=== PATIENT | female | born 1965 | race Caucasian/White ===

== ENCOUNTER → 2020-01-26 14:05 | Outpatient (BNVA) | payer BC, SELFPAY | PROVIDERS: Family Provider Registered Nurse; PCP Registered Nurse; Visit Provider Registered Nurse | DX: J11.1 Influenza due to unidentified influenza virus with other respiratory manifestations; R68.89 Other general symptoms and signs | CPT/HCPCS: 87804; 87880 ==

== ENCOUNTER 2020-04-17 14:40 | Emergency (ER) | payer BC, SELFPAY ==
[2020-04-17 14:56] VITALS: BP 147/87; PULSE 66; RESP 18; TEMP 37.3; O2SAT 96; BMI 29.9
--- NOTE | 2020-04-17 15:03 | W.ED.EXTPRO ---
HPI - Extremity Problem General: Chief complaint: Extremity Injury, Upper Stated complaint: R ARM INJURY Time Seen by Provider: 04/17/20 14:58 History of Present Illness: HPI Narrative: Patient is a 55-year-old female comes to the ED with left wrist pain. Patient was kayaking and she fell down the number and caught herself with her left hand extended. Patient felt a pop and sharp pain in the wrist. Patient describes pain is located right in the wrist and any finger or hand movement causes pain in the wrist. She rates it about at 9 out of 10. Associated symptoms: Deny chest pain, fever(s) or rash Review of Systems Const: Denies: fever(s), chills or fatigue Eyes: Denies: change in vision or eye discomfort ENMT: Denies: throat pain, odynophagia, nasal discharge or nasal congestion Card: Denies: chest pain, palpitations, edema, swelling of feet/ankles, dyspnea on exertion or orthopnea Resp: Denies: dyspnea, productive cough or non-productive cough GI: Denies: abdominal pain, nausea, vomiting, diarrhea, constipation or hematochezia : Denies: flank pain, dysuria or hematuria Musc: Reports: extremity pain (left wrist) and joint pain (left wrist pain); Denies: neck pain, back pain or extremity swelling Skin/Breast: Denies: rash or new lesions Neuro: Denies: headache(s), numbness in extremities or weakness in extremities PFS ED PFSH: Social History Smoking and tobacco status: never smoked Physical Exam Const: COMMON NORMALS: patient oriented x3 and alert GENERAL APPEARANCE: cooperative; not comfortable (Patient appears to be in discomfort and pain due to wrist.) HENMT: COMMON NORMALS: normocephalic HEAD & SCALP: normocephalic MOUTH: Normal oral and palatal mucosa present THROAT: posterior oropharynx normal and uvula midline Neck/C-Spine: COMMON NORMALS: supple GENERAL: Yes normal visual inspection Resp: COMMON NORMALS: normal respiratory effort, No retractions, No use of accessory muscles and clear to auscultation bilaterally AUSCULTATION: clear to auscultation bilaterally Cardio: COMMON NORMALS: regular rate, regular rhythm, S1 normal heart sound present, S2 normal heart sound present, No gallops present (Cardio), No clicks present (Cardio), No murmurs present (Cardio) and Peripheral pulses 2+ throughout RATE: regular rate RHYTHM: regular rhythm HEART SOUNDS: S1 normal heart sound present and S2 normal heart sound present PERIPHERAL PULSES: Peripheral pulses 2+ throughout GI: COMMON NORMALS: Normal to inspection, nondistended, normoactive bowel sounds present, Soft to palpation, non-tender and no masses PALPATION: Yes Soft to palpation : COMMON NORMALS: Yes no CVA tenderness BLADDER/KIDNEY EXAM: Yes no CVA tenderness Back/Pelvis: COMMON NORMALS: no CVA tenderness Extremity: COMMON NORMALS: capillary refill normal GENERAL: Yes normal exam except as noted LEFT UPPER EXTREMITY: Yes wrist Left wrist: Yes inspection (No visible deformity, swelling or erythema.), Yes palpation (Moderate to severe tenderness upon palpation throughout the wrist.), Yes ROM (Limited due to pain.) and Yes neurovascular exam (Intact, pulse 2+, cap refill normal and sensation intact to fingers.) Neuro: COMMON NORMALS: patient oriented x3 and moves all extremities SENSORIUM/ORIENTATION: Yes alert Skin: COMMON NORMALS: no rashes or lesions noted GENERAL SKIN EXAM: no rashes or lesions noted and dry skin Course Vital Signs: Vital signs: Vital Signs Temperature 99.1 F 04/17/20 14:56 Pulse Rate 66 04/17/20 14:56 Respiratory Rate 18 04/17/20 14:56 Blood Pressure 147/87 04/17/20 14:56 Pulse Oximetry 96 04/17/20 14:56 MDM - Extremity (Nontraumatic) MDM Narrative: Medical decision making narrative: Patient is a 55-year-old female comes to the ED with left wrist pain after falling catching herself on outstretched left arm. Left wrist was tender to palpation. Left radial pulse was 2+, left hand sensation intact and cap refill was normal. X-ray left wrist showed a distal nondisplaced radial head fracture. Patient was put in a sugar tong splint and an [facility] orthopedic referral was placed with case management. I informed patient that [facility] orthopedic clinic should be contacting them in the next several days to set up an appointment. Patient was told to continue wearing splint and limit activity with left arm. A written prescription for hydrocodone was given to patient to help with pain. Patient understood and agreed with plan. Dr. Paniagua reviewed this case. Imaging Data^: Xray Ortho: Attestation: I personally reviewed and interpreted this imaging study as follows: My impression: Left wrist x-ray shows nondisplaced distal radial head fracture. Pending final radiology report. Discharge Plan Discharge Patient Disposition: Home, Self-Care Clinical Impression: Fracture of distal end of left radius Qualifiers: Encounter type: initial encounter Fracture type: closed Fracture morphology: torus Qualified Code(s): S52.522A - Torus fracture of lower end of left radius, initial encounter for closed fracture Condition: Stable Prescriptions: No Action Eliquis 5 mg tablet 5 mg PO BID RF: 0 hydrochlorothiazide 12.5 mg capsule 12.5 mg PO DAILY RF: 0 hyoscyamine sulfate [Levsin] 0.125 mg tablet 0.125 mg PO QID RF: 0 losartan 100 mg tablet 100 mg PO DAILY RF: 0 metoprolol tartrate 37.5 mg tablet 37.5 mg PO DAILY RF: 0 Protonix [address] for susp in packet 40 mg PO DAILY Qty: 30 RF: 0 sertraline 100 mg tablet 100 mg PO DAILY Qty: 90 RF: 0 levothyroxine 25 mcg capsule 25 mcg PO DAILY Qty: 90 RF: 0 Multiple Vitamins Tablet 1 tab PO DAILY RF: 0 metoprolol succinate 25 mg tablet extended release 24 hr See Rx Instructions .ROUTE .COMPLEX RF: 0 Discharge Orders: Discharge Order (Routine); Ordered 04/17/20 Ordered By: Lauri Mart Referrals: Viral Alberto FNP [Primary Care Provider] - Discharge Diet: Regular Discharge Activity: Limit activity as instructed Patient Instructions: Wrist Fracture in Adults (ED) Activity Restrictions/Additional Instructions: [facility] orthopedic office should be contacting you in the next several days to set up an appointment. Do not remove splint and limit activity with left arm. Take hydrocodone as prescribed as needed for pain. You can also take ibuprofen 600mg 3 times daily in between hydrocodone doses if needed for pain. Coding Level of Care Code ED Decating Machine Operator for Opal Jacobo Exam Comprehensive
--- NOTE | 2020-04-17 15:27 | XRR_ITS ---
PROCEDURE INFORMATION: Exam: XR Left Wrist Exam date and time: 04/17/2020 3:28 PM Age: 55 years old Clinical indication: Injury or trauma; Fall; Initial encounter; Blunt trauma (contusions or hematomas; Wrist; Left; Additional info: Fall with injury to wrist, wrist pain TECHNIQUE: Imaging protocol: XR Left wrist. Views: 3 or more views. COMPARISON: No relevant prior studies available. FINDINGS: Bones/joints: Predominantly horizontally oriented nondisplaced fracture through the distal radial metaphysis. Soft tissues: Edema and/or hematoma is present in the soft tissues adjacent to the fracture site. There are benign-appearing soft tissue calcifications. XR/XR wrist LT min 3V* [id number] IMPRESSION: Predominantly horizontally oriented nondisplaced fracture through the distal radial metaphysis.
[2020-04-17] MEDS: HYDROcodone-acetaminophen 7.5-325 mg Tablet 1 TAB PO (15:45)
[2020-04-17 17:06] VITALS: BP 144/93; PULSE 72; RESP 14; O2SAT 95
--- NOTE | 2020-04-19 16:04 | DCPLANNER ---
manager bench had message to schedule a follow up appointment for patient with ortho. manager bench called the ortho clinic, spoke with Mariana, gave clinic patients information. manager bench was told that patients information would be printed and reviewed. Clinic will call assistant case manager and patient with appointment information.
--- NOTE | 2020-04-20 08:16 | DCPLANNER ---
Patient had a follow up appointment scheduled for 04.19.20 with ortho, patient did attend the appointment.
== END 2020-04-17 17:08 | disposition home or self-care (01) ==
PROVIDERS: Emergency Provider Physician Assistant; Family Provider Registered Nurse; PCP Registered Nurse
DX: S52.522A Torus fracture of lower end of left radius, initial encounter for closed fracture (principal); W19.XXXA Unspecified fall, initial encounter; Z79.01 Long term (current) use of anticoagulants
CPT/HCPCS: 12345; 29125; 73110; 99281; 99283; A4590

== ENCOUNTER 2020-04-19 14:07 | Outpatient (CLI) | payer BC, SELFPAY | END 2020-04-19 14:08 | disposition home or self-care (01) | LOC: SPT 14:07 | PROVIDERS: Family Provider Registered Nurse; PCP Registered Nurse; Visit Provider Orthopaedic Surgery | DX: Z46.89 Encounter for fitting and adjustment of other specified devices (principal); M25.532 Pain in left wrist | CPT/HCPCS: 97760; L3908 ==

== ENCOUNTER 2020-04-21 08:20 | Outpatient (CLI) | payer BC, SELFPAY ==
--- NOTE | 2020-04-21 08:30 | CT_ITS ---
WS: [id number] CT LEFT WRIST, NONCONTRAST. HISTORY: fracture Technique: All CT scans at [facility] use at least one of these dose optimization techniq ues: automated exposure control; mA and/or kV adjustment per patient size (includes targeted exams wh ere dose is matched to clinical indication); or iterative reconstruction. DLP: 2448.45 mGy-cm. COMPARISON: LEFT wrist radiograph 04/17/2020 Nondisplaced transverse fracture radial metaphysis. Fracture does extend to the radial articular surf casandra. There is no displacement. Distal ulna is intact. No widening of the radial ulnar joint. No scaph oid fracture. Carpal rows are normally aligned. Small amount of persistent soft tissue edema. CT/CT wrist LT wo con* [id number] IMPRESSION: Nondisplaced transverse radial fracture with intra-articular extension. No scaphoid fracture.
== END 2020-04-21 08:21 | disposition home or self-care (01) ==
PROVIDERS: Family Provider Registered Nurse; PCP Registered Nurse; Visit Provider Orthopaedic Surgery
DX: S52.522A Torus fracture of lower end of left radius, initial encounter for closed fracture (principal); X58.XXXA Exposure to other specified factors, initial encounter
CPT/HCPCS: 73200

== ENCOUNTER → 2020-05-16 15:23 | Outpatient (BNVA) | payer BC, SELFPAY | PROVIDERS: Family Provider Registered Nurse; PCP Registered Nurse; Visit Provider Orthopaedic Surgery | DX: S52.522A Torus fracture of lower end of left radius, initial encounter for closed fracture (principal) | CPT/HCPCS: 73110 ==

== ENCOUNTER → 2020-09-26 10:56 | Outpatient (BNVA) | payer BC, SELFPAY | PROVIDERS: Family Provider Registered Nurse; PCP Registered Nurse; Visit Provider Nurse Practitioner Family | DX: Z11.59 Encounter for screening for other viral diseases (principal); J06.9 Acute upper respiratory infection, unspecified | CPT/HCPCS: 87635 ==

== ENCOUNTER → 2021-02-23 10:52 | Outpatient (BNVA) | payer OTHER, SELFPAY | PROVIDERS: Family Provider Registered Nurse; PCP Registered Nurse; Visit Provider Registered Nurse | DX: I10 Essential (primary) hypertension (principal); F32.9 Major depressive disorder, single episode, unspecified; E55.9 Vitamin D deficiency, unspecified; E78.5 Hyperlipidemia, unspecified; E53.8 Deficiency of other specified B group vitamins; R55 Syncope and collapse; F43.29 Adjustment disorder with other symptoms; M26.609 Unspecified temporomandibular joint disorder, unspecified side | CPT/HCPCS: 80053; 80061; 82306; 82607; 84443; 85025 ==

== ENCOUNTER 2022-01-31 10:57 | Outpatient (CLI) | payer OTHER, SELFPAY ==
--- NOTE | 2022-01-31 11:02 | MM_ITS ---
WS: [id number] BILATERAL 3D TOMOSYNTHESIS DIGITAL SCREENING MAMMOGRAPHY WITH CAD CLINICAL INFORMATION: SCREENING HISTORY: Screening mammogram. No current complaints. COMPARISON: TECHNIQUE: Bilateral CC and MLO views. FINDINGS: The breasts are composed of heterogeneous fibroglandular density tissue, which can limit the detectio n of small underlying mass lesions. Incidental punctate calcifications and tiny lucent centered calci fications. Vascular calcification. No suspicious mass, asymmetry, calcifications, or architectural di stortion. No evidence of malignancy. MM/[place] [id number] IMPRESSION: BI-RADS: 2-Benign FOLLOW UP: 1 Year Follow-up Recommend return to annual screening mammography.
== END 2022-01-31 10:58 | disposition home or self-care (01) ==
LOC: RADSHAW 11:00
PROVIDERS: PCP Registered Nurse; Visit Provider Registered Nurse
DX: Z12.31 Encounter for screening mammogram for malignant neoplasm of breast (principal)
CPT/HCPCS: 77063; 77067

== ENCOUNTER 2022-04-25 15:40 | Outpatient (CLI) | payer OTHER, SELFPAY ==
--- NOTE | 2022-04-25 15:51 | XRR_ITS ---
PROCEDURE INFORMATION: Exam: XR Lumbosacral Spine Exam date and time: 04/25/2022 3:52 PM Age: 57 years old Clinical indication: Low back pain; Additional info: M54.50 - low back pain, unspecified TECHNIQUE: Imaging protocol: XR of the lumbosacral spine. Views: 2 or 3 views. COMPARISON: No relevant prior studies available. FINDINGS: Bones/joints: The lumbar spine maintains a normal lordotic curvature. No spondylolisthesis identified. The vertebral bodies maintain normal height. The intervertebral discs maintain normal height. Mild facet arthropathy at L4-5 and L5-S1. Soft tissues: Unremarkable. Surgical clips in the right upper quadrant noted. XR/XR lumbar spine 2-3V* [id number] IMPRESSION: 1. No vertebral body height loss or traumatic malalignment identified. 2. Mild facet arthropathy at L4-5 and L5-S1.
== END 2022-04-25 15:41 | disposition home or self-care (01) ==
LOC: RAD 15:43
PROVIDERS: PCP Registered Nurse; Visit Provider Registered Nurse
DX: M54.50 Low back pain, unspecified (principal)
CPT/HCPCS: 72100

== ENCOUNTER → 2022-08-08 09:05 | Outpatient (BNVA) | payer OTHER, SELFPAY | PROVIDERS: PCP Registered Nurse; Visit Provider Registered Nurse | DX: E03.9 Hypothyroidism, unspecified (principal); I10 Essential (primary) hypertension; E07.9 Disorder of thyroid, unspecified | CPT/HCPCS: 80053; 80061; 84443 ==

== ENCOUNTER → 2022-08-13 14:19 | Outpatient (BNVA) | payer OTHER, SELFPAY | PROVIDERS: PCP Registered Nurse; Visit Provider Registered Nurse | DX: N39.0 Urinary tract infection, site not specified (principal); R39.9 Unspecified symptoms and signs involving the genitourinary system | CPT/HCPCS: 81000 ==

== ENCOUNTER 2022-12-17 12:09 | Outpatient (CLI) | payer OTHER, SELFPAY ==
--- NOTE | 2022-12-17 13:18 | XRR_ITS ---
PROCEDURE INFORMATION: Exam: XR Left Ankle Exam date and time: 12/17/2022 1:19 PM Age: 57 years old Clinical indication: Injury or trauma; Other: Twisted while running; Sprain or strain; Left; Injury date: 07/2022; Injury details: --lt ankle pain lateral side, PT twisted ankle running on treadmill, in jul 2022; Additional info: S96.912a - strain of unspecified muscle and tendon at ank. . . TECHNIQUE: Imaging protocol: Radiologic exam of the Left ankle. Views: 3 or more views. COMPARISON: No relevant prior studies available. FINDINGS: Bones/joints: Normal. Soft tissues: Normal. XR/XR ankle LT min 3V* [id number] IMPRESSION: No acute findings.
== END 2022-12-17 12:10 | disposition home or self-care (01) ==
LOC: RAD 12:11
PROVIDERS: PCP Registered Nurse; Visit Provider Registered Nurse
DX: S96.912A Strain of unspecified muscle and tendon at ankle and foot level, left foot, initial encounter (principal); X58.XXXA Exposure to other specified factors, initial encounter
CPT/HCPCS: 73610

== ENCOUNTER 2023-04-03 11:29 | Outpatient (CLI) | payer OTHER, SELFPAY | END 2023-04-03 11:30 | disposition home or self-care (01) | LOC: SPT 11:29 | PROVIDERS: PCP Registered Nurse; Visit Provider Podiatrist Foot & Ankle Surgery | DX: Z46.89 Encounter for fitting and adjustment of other specified devices (principal); M25.372 Other instability, left ankle | CPT/HCPCS: 97760; L1902 ==

== ENCOUNTER 2023-08-06 11:56 | Outpatient (CLI) | payer OTHER, SELFPAY ==
--- NOTE | 2023-08-06 12:03 | MR_ITS ---
WS: [id number] MRI LEFT ANKLE WITHOUT CONTRAST. COMPARISON: Radiographs 12/17/2022 Multiplanar, multisequence imaging is performed without contrast. No fracture or marrow edema. No significant joint effusion. No osteochondral lesions along the talar dome. Talofibular ligaments are intact. Deltoid ligament is normal. Achilles tendon is normal. Abnormal signal within the peroneal tendons and sheath just inferior to the fibular tip. This corresp onds to the marker placed in the area of pain. There is indistinctness between the 2 tendons with lisbet ma. Distally the peroneal brevis tendon has a split tear. The peroneal longus tendon may be inserting into the tear of the peroneal brevis tendon. There is marked soft tissue thickening and increased si gnal along the tendon sheath the split tear within the peroneal brevis extending to the fifth metatar christie. The remaining extensor and flexor tendons normal course and caliber. No additional tendinopathy. IMPRESSION: 1. Abnormal signal focally in the peroneal tendons and tendon sheath just inferior to the fibula. The tendons become individually indistinct and there is increased signal within the tendons and also the tendon sheath. Both tendons may be torn. The peroneal brevis tendon may be torn with invagination of the peroneal longus tendon. 2. There is a split tear involving a long segment of the distal peroneal brevis tendon as it approach es the fifth metatarsal.
== END 2023-08-06 11:57 | disposition home or self-care (01) ==
PROVIDERS: PCP Registered Nurse; Visit Provider Podiatrist Foot & Ankle Surgery
DX: M25.372 Other instability, left ankle (principal); M84.373A Stress fracture, unspecified ankle, initial encounter for fracture; S86.312A Strain of muscle(s) and tendon(s) of peroneal muscle group at lower leg level, left leg, initial encounter; X58.XXXA Exposure to other specified factors, initial encounter
CPT/HCPCS: 73721

== ENCOUNTER → 2023-08-20 08:40 | Outpatient (BNVA) | payer OTHER, SELFPAY | PROVIDERS: PCP Registered Nurse; Visit Provider Registered Nurse | DX: E03.9 Hypothyroidism, unspecified (principal) | CPT/HCPCS: 84443 ==

== ENCOUNTER → 2023-08-27 16:26 | Outpatient (BNVA) | payer OTHER, SELFPAY | PROVIDERS: PCP Registered Nurse; Visit Provider Internal Medicine Cardiovascular Disease | DX: R07.9 Chest pain, unspecified (principal) | CPT/HCPCS: 93005 ==

== ENCOUNTER 2023-09-02 13:34 | Outpatient (CLI) | payer OTHER, SELFPAY ==
--- NOTE | 2023-09-02 13:45 | USCV_ITS ---
Manisha Arroyo Age: 58 Gender: F : 1965 Exam Date: 09/02/2023 13:54 Ordering Phys: Destiney Man MD ([email or web address]) Technologist: Razia Shine Exam Location: [facility] [place] [place] Indication: afib, JOSE BP: 138 / 86 HR: 63 Rhythm: Sinus Technical Quality: Good MEASUREMENTS (Male / Female) Normal Values 2D ECHO LV Diastolic Diameter PLAX 4.1 cm 4.2 - 5.9 / 3.9 - 5.3 cm LV Systolic Diameter PLAX 2.9 cm IVS Diastolic Thickness 1.1 cm 0.6 - 1.0 / 0.6 - 0.9 cm IVS Systolic Thickness 1.0 cm LVPW Diastolic Thickness 0.9 cm 0.6 - 1.0 / 0.6 - 0.9 cm LVPW Systolic Thickness 1.2 cm LVOT Diameter 2.0 cm LV Ejection Fraction 2D Teich 55.8 % LV Ejection Fraction MOD 2C 69.1 % LV Ejection Fraction 2C AL 68.7 % LA Diameter 3.1 cm LA Width 3.1 cm LA Height 4.3 cm RA Width 3.2 cm RA Height 4.4 cm Aorta at Sinotubular Diameter 3.1 cm IVC Diameter 1.5 cm M-MODE Aortic Annulus Diameter 2.6 cm LA Ao Ratio MM 1.4 MV E Point Septal Separation 0.3 cm DOPPLER AV Peak Velocity 140.0 cm/s LVOT Peak Velocity 104.0 cm/s AV Area Cont Eq vti 2.8 cm squared AV Area Cont Eq pk 2.4 cm squared MV Peak Velocity 110.0 cm/s MV Area PHT 4.3 cm squared Mitral E to A Ratio 1.7 MV E' Velocity 46.5 cm/s Mitral E to MV E' Ratio 5.8 Mitral E to LV E' Lateral Ratio 6.7 Mitral E to LV E' Septal Ratio 5.1 TR Peak Velocity 167.0 cm/s TR Peak Gradient 11.2 mmHg Right Atrial Pressure 5.0 mmHg Pulmonary Artery Systolic Pressu 16.2 mmHg PV Peak Velocity 120.0 cm/s RV Acceleration Time 0.2 s RV Ejection Time 0.3 s RV AcT/ET 0.5 FINDINGS Left Ventricle Normal left ventricular size and systolic function, EF 73 %. No regional wall motion abnormalities. Right Ventricle The right ventricle is normal in size and function. Right Atrium The right atrium is normal in size. Left Atrium The left atrium is normal in size. Mitral Valve Trace to mild mitral valve regurgitation. Aortic Valve No gross abnormalities noted Tricuspid Valve Trace tricuspid valve regurgitation. Pulmonic Valve No gross abnormalities noted Pericardium Normal pericardium without effusion. Aorta Normal ascending aorta dimension. IVC Normal inferior vena cava. CONCLUSIONS Normal left ventricular size and systolic function, EF 73 %. No regional wall motion abnormalities. Trace to mild mitral valve regurgitation. Trace tricuspid valve regurgitation. Normal cardiac chamber sizes. No intracardiac masses. No pericardial effusion. Estimated pulmonary artery peak systolic pressure within normal limit Compared to the study from 08/31/2016, there may not be a significant change. Dr Destiney Man MD FACC (Electronically Signed) Final Date: 03 September 2023 22:52 S
== END 2023-09-02 13:35 | disposition home or self-care (01) ==
PROVIDERS: PCP Registered Nurse; Visit Provider Internal Medicine Cardiovascular Disease
DX: I48.91 Unspecified atrial fibrillation (principal); R06.09 Other forms of dyspnea
CPT/HCPCS: 93306

== ENCOUNTER 2023-09-04 08:23 | Day surgery (SDC) | payer OTHER, SELFPAY ==
[2023-09-04] VITALS (10 sets, daily range): BP systolic 119–144; BP diastolic 70–97; PULSE 61–95; RESP 7–17; TEMP 36.1–36.6; O2SAT 91–100; BMI 31.4
[2023-09-04] MEDS: sodium chloride 0.9% 1,000 ML 30 ML IV ×2 (09:08→11:08)
[2023-09-04] MEDS: gabapentin 300 mg Capsule PO (09:08)
[2023-09-04] MEDS: acetaminophen 1,000 MG/100 ML PIGGYBACK 400 MG IV (09:08)
[2023-09-04 09:26] LABS: Basophils # 0.1 10^3/uL (0.0-0.1); Basophils % 0.7 %; Eosinophils # 0.1 10^3/uL (0.0-0.8); Eosinophils % 1.3 %; Hematocrit 40.4 % (36-47); Lymphocytes % 25.9 %; Mean Corpuscular HGB Conc 32.4 g/dL (30-55); Mean Corpuscular Hemoglobin 29.2 pg (27-33); Mean Corpuscular Volume 90.2 fl (85-98); Mean Platelet Volume 10.7 fL (7.4-10.4); Monocytes # 0.6 10^3/uL (0.2-0.9); Monocytes % 7.8 %; Neutrophils # 4.85 10^3/uL (1.8-7.7); Neutrophils % 64.2 %; Nucleated Red Blood Cells % 0 %; Platelet Count 318 10^3/cmm (157-399); Red Blood Count 4.48 10^6/uL (3.85-5.65); Red Cell Distribution Width 13.5 % (12.1-15.1); White Blood Count 7.56 10^3/uL (3.29-11.43)
[2023-09-04 10:02] LABS: Albumin Level 4.6 g/dL (3.5-5.2); Alkaline Phosphatase 87 U/L (35-105); Anion Gap 14.2 (5-19); Aspartate Amino Transferase 25 U/L (0-32); Blood Urea Nitrogen 14 mg/dL (6-20); Calcium 9.3 mg/dL (8.5-10.5); Carbon Dioxide 27 mmol/L (22-29); Chloride 104 mmol/L (98-107); Globulin 2.7 g/dL (1.3-4.6); Glomerular Filtration Rate 86.2 mL/min (90-130); Glucose 142 mg/dL (65-115); Osmolality Calculated 297 mOsm/kg (285-295); Potassium 3.2 mmol/L (3.5-5.1); Sodium 142 mmol/L (136-145); Total Bilirubin 0.5 mg/dL (0.15-1.2); Total Protein 7.3 g/dL (6.6-8.7)
[2023-09-04 10:12] LABS: Alanine Aminotransferase 23 U/L (0-33)
--- NOTE | 2023-09-04 10:25 | P.ANESASSM_ITS ---
Pre-Anesthetic Assessment Height/Weight: Height 1.65 m Weight 85.729 kg Temp Pulse Resp BP Pulse Ox O2 Del Method 97.3 F L 61 16 139/84 96 Room Air 09/04/23 08:43 09/04/23 08:43 09/04/23 08:43 09/04/23 08:43 09/04/23 08:43 09/04/23 08:44 Preop Diagnosis: Left peroneal tendon tear Operation Date: 09/04/23 09:15 Proposed Procedures p ?Left peroneal tendon repair 79545,S86.392A(Left) - Oswald Jeffries DPM Familial anesthetic complications: None Was Beta Umberto taken within 24 hours: N/A Was Clonidine taken within 24 hours: N/A Last intake: Intake Last Liquid Date 09/03/23 Last Liquid Time 18:00 Last Solid Date 09/03/23 Last Solid Time 18:00 Social No alcohol and No tobacco Exam alert, oriented x 3, clear to auscultation bilaterally and regular rate & rhythm Airway Dentition: full CV/HEM Atrial Fibrillation, Arrythmia (s/p ablation) and Hypertension echo ok - no bridge required GI Gastroesophageal Reflux Disease Metabolic Thyroid Disease Anesthetic Plan ASA status: 3 Anesthesia: General and Regional (specify below) Risk of > 500 ml blood loss (7ml/kg in children): No Medications/Allergies Home Medications Medication Instructions Recorded Confirmed Last Taken Type multivitamin (Multiple Vitamins 1 tab PO DAILY 04/17/20 09/03/23 09/03/23 Hist ory tablet) cock up splint #1 04/19/20 08/13/23 Unknown Rx apixaban 5 mg tablet (Eliquis) 5 mg PO BID #180 tabs 09/17/22 09/03/23 08/30/23 Rx ASO brace #1 ea 04/03/23 08/13/23 Unknown Rx metoprolol tartrate 37.5 mg tablet 37.5 mg PO BID #90 tabs 07/29/23 09/04/23 09/04/23 Rx hydrochlorothiazide 12.5 mg capsule 12.5 mg PO DAILY #90 caps 08/08/23 09/04/23 09/04/23 Rx Crutches #1 ea 08/13/23 08/13/23 Unknown Rx losartan 100 mg tablet 100 mg PO DAILY #90 tabs 08/15/23 09/03/23 09/03/23 Rx levothyroxine 25 mcg tablet 25 mcg PO DAILY 09/03/23 09/04/23 09/04/23 History pantoprazole 40 mg tablet,delayed 40 mg PO DAILY 09/03/23 09/04/23 09/04/23 History release sertraline 100 mg tablet 100 mg PO DAILY 09/03/23 09/03/23 09/03/23 History Allergies Allergy/AdvReac Type Severity Reaction Status Date / Time doxycycline Allergy Unknown Verified 08/27/23 16:05 Sulfa (Sulfonamide Allergy Unknown Verified 08/27/23 16:05 Antibiotics) Current Medications Generic Name Dose Route Start Last Admin Trade Name Freq PRN Reason Stop Dose Admin Sodium Chloride 1,000 mls @ 30 mls/hr 09/04/23 08:30 09/04/23 09:08 Sodium Chloride 0.9% IV 09/05/23 08:29 30 mls/hr .Q24H MITRA Administration PFSH Anesthesia Medical History Afib Depression, controlled Hypertension Family History Mother CAD (coronary artery disease) Chronic kidney disease (CKD) Diabetes Lung disease Stroke Father CAD (coronary artery disease), Onset Age: 50 Cancer Diabetes Lung disease Family/Other CAD (coronary artery disease), Onset Age: 50 Sister CAD (coronary artery disease), Onset Age: 50 Cancer Sister CAD (coronary artery disease), Onset Age: 50 maker Grandmother Cancer Denies family history of Clotting disorder Dementia Suicide Anesthesia complication Bleeding disorder Social History Smoking and tobacco/nicotine status: never used tobacco/nicotine Alcohol intake: current Alcohol intake frequency: holidays/special occasions only Substance/Drug Use: never Adopted: No Caregiver/support person: No Lives independently: No Household members: spouse Marital status: service: No Current occupational status: employed Sexually active: Yes Do you think of yourself as: Straight/Heterosexual Current gender identity: Female Data Anesthesia 09/04/23 09:15 09/04/23 09:15 Short CBC 09/04/23 Range/Units 09:15 WBC 7.56 (3.29-11.43) 10^3/uL Hgb 13.10 (11.27-16.99) g/dL Hct 40.4 (36-47) % MCV 90.2 (85-98) fl Plt Count 318 (157-399) 10^3/cmm Neut % (Auto) 64.2 % Neut # (Auto) 4.85 (1.8-7.7) 10^3/uL BMP 09/04/23 09:15 Sodium 142 Potassium 3.2 L Chloride 104 Carbon Dioxide 27 BUN 14 Creatinine 0.7 Glucose 142 H Calcium 9.3 Liver Function 09/04/23 Range/Units 09:15 Total Bilirubin 0.5 (0.15-1.2) mg/dL AST 25 (0-32) U/L ALT 23 (0-33) U/L Alkaline Phosphatase 87 (35-105) U/L Albumin 4.6 (3.5-5.2) g/dL Cardiac Studies: Echocardiogram 09/02/23
--- NOTE | 2023-09-04 10:26 | ANES.PROC ---
Anesthesia Procedures Procedure/Date: 09/04/23 Nerve Block ^: Nerve Block 1: Main Anesthesia: general anesthesia Time Out Performed: Yes Consent: requested by attending/covering physician, from patient, from other, risks and benefits reviewed and patient agrees to proceed Nerve block location: popliteal (L) Anesthesia monitors applied: pulse oximetry, EKG, BP cuff and oxygen Nerve block position: supine Anesthetic Used: ropivicaine 0.5% (30 ml) and with decadron (4 mg) Nerve Stimulator Used?: No Interscalene/Femoral BLK: 4 stimuplex 21 g needle used for position and inplane approach, visualize local anesthetic spread and no vascular puncture identified Injection: neg aspiration of heme Patient Tolerated Procedure: well Complications: none
--- NOTE | 2023-09-04 11:00 | W.PM.OPSUD ---
Surgery/Procedure H&P Update DATE OF PROCEDURE: September 04, 2023 DATE H&P PERFORMED: 08/13/23 CHANGES TO PREVIOUS DOCUMENTATION: No changes PREOP DIAGNOSIS: Left peroneal tendon tear PLANNED PROCEDURE: Operation Date: 09/04/23 09:15 Proposed Procedures p ?Left peroneal tendon repair 26166,S86.392A(Left) - Oswald Jeffries DPM
[2023-09-04] MEDS: ceFAZolin 2,000 MG in sodium chloride 0.9% (plus) 50 ML 100 MG IV (11:19)
--- NOTE | 2023-09-04 12:26 | W.PM.BPON ---
Date of procedure: 09/04/23 Surgeon name: Dr. Oswald Jeffries DPM Electric Deicer Inspector(s) name(s): None Procedure(s) performed: Peroneus brevis tendon repair left ankle Description of findings: Split tear peroneus brevis tendon with associated mass Estimated blood loss: 1 cc Specimen(s) removed: Soft tissue mass left peroneus brevis tendon Post-operative diagnosis: Peroneus brevis tendon tear with soft tissue mass
--- NOTE | 2023-09-04 22:00 | P.OP_ITS ---
Operative Report Date of procedure: September 04, 2023 Pre-op diagnosis: Left ankle peroneus brevis tendon tear Post-op diagnosis: Same Post-op findings: Split longitudinal tear of peroneus brevis tendon with thickened synovium with cystic appearance. Cyst was removed and sent to pathology Procedure done: Left ankle peroneus brevis tendon repair CPT 28851 Implants: None Pathology: Cystic mass clear in appearance with well-defined edges measuring 1.0 x 0.5 cm at its widest along its margins. Surgeon: Oswald Jeffries DPM Complications: None Findings: See above Procedure: Patient is a 58-year-old female split longitudinal tear that has a history of split tear of left peroneus brevis tendon. The patient has had the aforementioned chief complaint for some time. Conservative treatment measures have been attempted and the patient has opted for surgical intervention at this time. A lengthy discussion regarding the procedure, including risks and complications has been had with the patient and is noted in the recent clinic note. Written and verbal consent have been obtained. All patient questions have been answered to the patient?s satisfaction. No written or verbal guarantees have been given or implied. The patient has been NPO since midnight. The history has been reviewed and the history and physical is current. The signed consent was confirmed and placed in the patient chart. Patient imaging has been reviewed and is consistent with the diagnosis. Under mild sedation, the patient was brought into the operating room and placed on the table in the supine position. IV antibiotics were given by the anesthesia team as preoperative surgical prophylaxis. General sedation was then performed by the anesthesiateam. A popliteal block was performed by the anesthesia department. A pneumatic tourniquet was then placed about the left thigh. The operative extremity was then prepped and draped in the usual fashion. The extremity was then elevated and exsanguinated before the tourniquet was inflated to 325 mmHg. After inflation, the following procedure was then performed. Attention was directed to the lateral aspect of the left ankle where a 6 mm incision was made overlying the peroneal tendons. Blunt dissection was carried down through subcutaneous and superficial fascia. Dissection was carried down to the level of the peroneal tendon sheath. This was incised using a #15 blade. Metzenbaum scissors were then used to open up the peroneal tendon sheath. There was noted to be an extravasation of synovial fluid after opening up the tendon sheath. The peroneal tendons were then visualized and examined. There was noted to be a split longitudinal tear of the peroneus brevis tendon. There is also noted to be an attached soft tissue mass to the peroneus brevis tendon that was cystic in appearance with well-defined edges. Benign in appearance. Using a 15 blade and pickups the synovitis of the tendon sheath was removed. The soft tissue mass was then excised from the peroneus brevis tendon and passed from the operative field to be sent to pathology as surgical specimen. Attention was directed to the peroneus brevis tendon split longitudinal tear. This was reapproximated using 2-0 Ethibond. The peroneus brevis tendon was tubularized in standard fashion. The tendon was further examined and no remaining split tears were visualized. The peroneus longus tendon was noted to be healthy and viable. The site was irrigated with copious amounts of sterile saline before attention was directed to closure. Deep tissue including the peroneal tendon sheath was closed with 2-0 Vicryl followed by subcuticular josé miguel sure with 3-0 Vicryl and skin closure with 3-0 nylon in horizontal mattress fashion. The tourniquet was let down and good hyperemic response was noted to all digits of the left foot. The incision site was dressed with Xeroform, 4 x 4 gauze, Kerlix before being placed in a well-padded below the knee posterior splint. The patient tolerated the procedure and anesthesia well and without complicatio n. The patient was transported from the operating room to the recovery room with vital signs stable and vascular status intact to all digits of the left foot. The patient was given both written and verbal instructions to remain nonweightbearing to the operative extremity, to keep dressings/splint clean, dry and intact and to take pain medication as directed. The patient will follow-up in the outpatient setting at their scheduled appointment. The patient was discharged with my personal number and was instructed to call if any questions or issues should arise. They were discharged home once anesthesia criteria was met.
== END 2023-09-04 13:59 | disposition home or self-care (01) ==
PROVIDERS: PCP Registered Nurse; Visit Provider Podiatrist Foot & Ankle Surgery
PROC: (CPT 27659; principal; 2023-09-04 08:55)
DX: S86.392A Other injury of muscle(s) and tendon(s) of peroneal muscle group at lower leg level, left leg, initial encounter (principal); X58.XXXA Exposure to other specified factors, initial encounter; I48.91 Unspecified atrial fibrillation; I10 Essential (primary) hypertension; K21.9 Gastro-esophageal reflux disease without esophagitis; F32.A Depression, unspecified
CPT/HCPCS: 27659; 36415; 80053; 85025; 88304; J0131; J0690; J1100; J2704; J2795; J3010; J3490; J7030

== ENCOUNTER 2023-09-18 06:00 | Outpatient (CLI) | payer OTHER, SELFPAY | END 2023-09-18 23:59 | disposition home or self-care (01) | LOC: SPT 11-07 14:16 | PROVIDERS: PCP Registered Nurse; Visit Provider Podiatrist Foot & Ankle Surgery | DX: Z47.89 Encounter for other orthopedic aftercare (principal) | CPT/HCPCS: L4361 ==

== ENCOUNTER 2023-10-22 14:08 | Outpatient (RCR) | payer OTHER, SELFPAY | END 2023-11-17 23:59 | disposition home or self-care (01) | LOC: SPT 14:08 | PROVIDERS: PCP Registered Nurse; Visit Provider Podiatrist Foot & Ankle Surgery | DX: Z47.89 Encounter for other orthopedic aftercare (principal) | CPT/HCPCS: 97110; 97161 ==

== ENCOUNTER → 2024-08-21 10:25 | Outpatient (BNVA) | payer OTHER, SELFPAY | PROVIDERS: PCP Registered Nurse; Visit Provider Registered Nurse | DX: Z13.6 Encounter for screening for cardiovascular disorders (principal); I10 Essential (primary) hypertension | CPT/HCPCS: 80053; 80061; 85025 ==

== ENCOUNTER 2024-09-14 06:52 | Day surgery (SDC) | payer OTHER, SELFPAY ==
[2024-09-14 07:01] VITALS: BMI 32.4
[2024-09-14 07:07] VITALS: BP 143/103; PULSE 92; RESP 20; TEMP 36.3; O2SAT 98
[2024-09-14] MEDS: sodium chloride 0.9% 1,000 ML 30 ML IV (07:10)
--- NOTE | 2024-09-14 07:46 | ANES.PREANE2 ---
Pre-Anesthetic Assessment Height/Weight: Height 1.65 m Weight 88.451 kg Temp Pulse Resp BP Pulse Ox O2 Del Method 97.4 F L 92 20 H 143/103 98 Room Air 09/14/24 07:07 09/14/24 07:07 09/14/24 07:07 09/14/24 07:07 09/14/24 07:07 09/14/24 07:07 Preop Diagnosis: Screening/heartburn Operation Date: 09/14/24 08:00 Proposed Procedures p EGD 40628, 63766, G0121, Z12.11 K21.00(Not Applicable) - Joshua Ornelas MD s Colonoscopy(Not Applicable) - Joshua Ornelas MD Was Beta Umberto taken within 24 hours: N/A Was Clonidine taken within 24 hours: N/A Last intake: Intake Last Liquid Date 09/13/24 Last Liquid Time 23:00 Last Solid Date 09/12/24 Last Solid Time 18:00 Social No alcohol and No tobacco Exam alert, oriented x 3, clear to auscultation bilaterally and regular rate & rhythm Airway Submandibular: within normal limits Cervical ROM: within normal limits Mallampati: Class II Dentition: full History/ROS No significant history except as noted and No significant complaints Pulmonary None reported CV/HEM Atrial Fibrillation and Hypertension None reported Hepatic None reported GI Gastroesophageal Reflux Disease Metabolic None reported Musc/skel None reported Neuropsych None reported Anesthetic Plan ASA status: 2 Anesthesia: Anesthesia Evaluation and MAC Risk of > 500 ml blood loss (7ml/kg in children): No Medications/Allergies Home Medications Medication Instructions Recorded Confirmed Last Taken Type multivitamin (Multiple Vitamins 1 tab PO DAILY 04/17/20 09/10/24 09/13/24 History tablet) cock up splint #1 ea 04/19/20 08/25/24 09/13/24 Rx ASO brace #1 ea 04/03/23 09/10/24 09/13/24 Rx Crutches #1 ea 08/13/23 08/25/24 09/13/24 Rx CAM boot #1 ea 09/18/23 08/25/24 09/13/24 Rx ASO brace #1 ea 10/30/23 09/10/24 09/13/24 Rx apixaban 5 mg tablet (Eliquis) 5 mg PO BID 09/10/24 09/10/2409/11/24 History hydrochlorothiazide 12.5 mg capsule 12.5 mg PO DAILY 09/10/24 09/10/24 09/13/24 History latanoprost 0.005 % eye drops 1 drp ophthalmic (eye) BEDTIME 09/10/24 09/10/24 09/13/24 History levothyroxine 25 mcg tablet 25 mcg PO DAILY 09/10/24 09/10/24 09/10/24 History losartan 100 mg tablet 100 mg PO DAILY 09/10/24 09/10/24 09/13/24 History metoprolol succinate 50 mg 50 mg PO BID 09/10/24 09/14/24 09/14/24 06:00 History tablet,extended release 24 hr pantoprazole 40 mg tablet,delayed 40 mg PO DAILY 09/10/24 09/10/24 09/13/24 History release sertraline 100 mg tablet 100 mg PO DAILY 09/10/24 09/10/24 09/13/24 History Allergies Allergy/AdvReac Type Severity Reaction Status Date / Time doxycycline Allergy Unknown Verified 08/25/24 08:57 Sulfa (Sulfonamide Allergy Unknown Verified 08/25/24 08:57 Antibiotics) Current Medications Generic Name Dose Route Start Last Admin Trade Name Freq PRN Reason Stop Dose Admin Sodium Chloride 1,000 mls @ 30 mls/hr 09/14/24 07:00 09/14/24 07:10 Sodium Chloride 0.9% IV 30 mls/hr .Q24H MITRA Administration PFSH Anesthesia Medical History Depression, controlled Hypertension Afib Surgical History History of tonsillectomy and adenoidectomy Hx of cholecystectomy Hx of artificial lens replacement History of mandibular surgery History of partial hysterectomy Hx of bladder repair surgery Hx of appendectomy Family History Mother CAD (coronary artery disease) Chronic kidney disease (CKD) Diabetes Lung disease Stroke Father CAD (coronary artery disease), Onset Age: 50 Cancer Diabetes Lung disease Family/Other CAD (coronary artery disease), Onset Age: 50 Sister CAD (coronary artery disease), Onset Age: 50 Cancer Sister CAD (coronary artery disease), Onset Age: 50 maker Grandmother Cancer Denies family history of Clotting disorder Dementia Suicide Anesthesia complication Bleeding disorder Social History Smoking and tobacco/nicotine status: never used tobacco/nicotine Alcohol intake: current Alcohol intake frequency: holidays/special occasions only Substance/Drug Use: never Adopted: No Caregiver/support person: No Lives independently: No Household members: spouse Marital status: service: No Current occupational status: employed Sexually active: Yes Do you think of yourself as: Straight/Heterosexual Current gender identity: Female Data Anesthesia Cardiac Studies: Echocardiogram 09/02/23
--- NOTE | 2024-09-14 08:15 | W.PM.OPSUD ---
Surgery/Procedure H&P Update DATE OF PROCEDURE: September 14, 2024 DATE H&P PERFORMED: 08/13/23 H&P UPDATE INFORMATION: I have reviewed H&P completed within last 30 days, I have examined patient prior to procedure and No changes to prior documentation PREOP DIAGNOSIS: Screening/heartburn PLANNED PROCEDURE: Operation Date: 09/14/24 08:00 Proposed Procedures p EGD 22499, 51627, G0121, Z12.11 K21.00(Not Applicable) - Joshua Ornelas MD s Colonoscopy(Not Applicable) - Joshua Ornelas MD
[2024-09-14 08:49] VITALS: BP 118/81; PULSE 81; RESP 18; TEMP 36.4; O2SAT 98
[2024-09-14 09:15] VITALS: BP 142/119; PULSE 73; RESP 16; O2SAT 97
--- NOTE | 2024-09-14 09:20 | ANE.PACU2 ---
Inpatient post-anesthesia follow up: Airway intact: Yes Vital signs: Temperature 97.6 F Pulse Rate 73 Respiratory Rate 16 Blood Pressure 142/119 Pulse Oximetry 97 Oxygen Delivery Me thod Room Air Oxygen Flow Rate Fraction of Inspir ed Oxygen Hydration adequate: Yes Nausea and vomiting: No Pain level: 1 Mental status: Baseline
== END 2024-09-14 09:20 | disposition home or self-care (01) ==
PROVIDERS: PCP Registered Nurse; Visit Provider Student in an Organized Health Care Education/Training Program
PROC: 0DJ08ZZ Inspection of Upper Intestinal Tract, Via Natural or Artificial Opening Endoscopic (ICD-10-PCS; CPT 43235; principal; 2024-09-14 08:00)
PROC: 0DJD8ZZ Inspection of Lower Intestinal Tract, Via Natural or Artificial Opening Endoscopic (ICD-10-PCS; CPT 45378; 2024-09-14 08:00)
DX: Z12.11 Encounter for screening for malignant neoplasm of colon (principal); K21.9 Gastro-esophageal reflux disease without esophagitis; K29.70 Gastritis, unspecified, without bleeding; I48.91 Unspecified atrial fibrillation; I10 Essential (primary) hypertension
CPT/HCPCS: 43239; 45378; 45380; 88305; J2704; J7030

== ENCOUNTER → 2024-10-21 07:17 | Outpatient (BNVA) | payer OTHER, SELFPAY | PROVIDERS: PCP Registered Nurse; Visit Provider Podiatrist Foot & Ankle Surgery | DX: M79.672 Pain in left foot (principal); M72.2 Plantar fascial fibromatosis | CPT/HCPCS: 73630 ==

== ENCOUNTER → 2024-11-24 09:49 | Outpatient (BNVA) | payer OTHER, SELFPAY | PROVIDERS: PCP Registered Nurse; Visit Provider Registered Nurse | DX: E03.9 Hypothyroidism, unspecified (principal) | CPT/HCPCS: 84443 ==

== ENCOUNTER 2025-09-15 13:17 | Outpatient (CLI) | payer OTHER, SELFPAY ==
--- NOTE | 2025-09-15 13:32 | MM_ITS ---
WS: [id number] BILATERAL 3D TOMOSYNTHESIS DIGITAL SCREENING MAMMOGRAPHY WITH CAD CLINICAL INFORMATION: SCREENING HISTORY: Screening mammogram. No current complaints. COMPARISON: 2021 TECHNIQUE: Bilateral CC and MLO views. FINDINGS: The breasts are composed of heterogeneous fibroglandular density tissue, which can limit the detection of small underlying mass lesions. No suspicious mass, asymmetry, calcifications, or architectural distortion. No evidence of malignancy. Vascular calcification. Incidental punctate calcifications. MM/MM [facility] tomosynthesis [id number] IMPRESSION: DENSITY: The breasts are heterogeneously dense, which may obscure small masses. BI-RADS: 2 - Benign FOLLOW UP: 1 Year Follow-up Recommend return to annual screening mammography.
== END 2025-09-15 13:18 | disposition home or self-care (01) ==
LOC: RAD 13:19
PROVIDERS: PCP Registered Nurse; Visit Provider Registered Nurse
DX: Z12.31 Encounter for screening mammogram for malignant neoplasm of breast (principal); R92.333 Mammographic heterogeneous density, bilateral breasts; R92.323 Mammographic fibroglandular density, bilateral breasts; R92.1 Mammographic calcification found on diagnostic imaging of breast
CPT/HCPCS: 77063; 77067